=== PATIENT | male | born 1940 | race Caucasian/White ===

== ENCOUNTER 2023-04-24 19:05 | Inpatient (IN) | payer MEDICARE, SELFPAY ==
--- NOTE | ~2023-04-24 | CT_ITS ---
EXAMINATION: CT SOFT TISSUE NECK WITH CONTRAST CLINICAL INFORMATION: Swelling, redness COMPARISON: None. TECHNIQUE: Following the administration of 60 mL of Omnipaque 350 intravenous contrast, helical imaging was performed in the axial plane with generation of coronal and sagittal reformatted images. This CT examination was performed using dose optimization techniques as appropriate, variously including the following: *Automated exposure control. *Adjustment of mA and/or kV according to patient size (this includes techniques or standardized protocols for targeted exams where dose is matched to indication/reason for exam; i.e. extremities or head). *Use of iterative reconstruction technique. DLP: 4:15 mGy-cm. FINDINGS: There is inflammatory stranding within the subcutaneous fat of the submental region with thickening of the right greater than left platysma muscles and stranding extending caudally into the infrahyoid neck involving the subcutaneous fat and right submandibular and anterior neck triangles. Findings are most compatible with cellulitis. No definite odontogenic source identified, however there is a small root remnant of the right maxillary third molar within a significantly thinned right maxillary alveolus. No interval fluid collection. No evidence of sialoadenitis of the parotid or submandibular glands. Lens replacements. Slight leftward nasal septal deviation with small leftward bony spur. A single opacified right posterior ethmoid air cell with tiny retention cyst in the right maxillary sinus. Right mastoid effusion. Elongated an ossified styloid processes can be correlated clinically for [place] syndrome. The temporomandibular joints are normal. The oral cavity, pharyngeal mucosal space, and larynx are unremarkable, noting the laryngeal structures are closely apposed limiting assessment. The thyroid gland is normal. No pathologic size criteria or morphologically suspicious cervical chain lymph nodes. The partially visualized lung apices are clear. Normal opacification of the major neck vessels. Mild calcific plaque at the bilateral carotid bifurcations. Cervical spondylosis with multilevel mild chronic height loss of the lower cervical vertebral bodies. Partially imaged global cerebral volume loss. Calcific plaque along the bilateral carotid siphons. CT/CT soft tissue neck w IV con IMPRESSION: Cellulitis within the submental region tracking caudally into the right greater than left infrahyoid neck as above. No drainable fluid collection. Definite odontogenic source identified, however there is a small root remnant of the right maxillary third molar within a significantly thinned right maxillary alveolus
[2023-04-24 19:15] VITALS: BP 176/76; PULSE 64; RESP 18; TEMP 36.9; O2SAT 99; BMI 29.6
--- NOTE | 2023-04-24 19:21 | ED_ITS ---
HPI - General Adult General Chief complaint: General Medical Stated complaint: facial swelling and pain, started this morning Time Seen by Provider: 04/25/23 01:24 Source: patient and family Mode of arrival: ambulatory Limitations: no limitations History of Present Illness HPI narrative: 83 yo male with PMH of HTN, Fe deficiency anemia, GERD, chronic anemia - Fe infusions and procrit here with c/o having recent URI but then noting R sided facial swelling that fluctuates up and down starting today. He went to the dentist today and was told it was not dental. The swelling has improved throughout the day not related to eating or chewing. He has no fevers, no diff swallowing no change in voice. MD complaint: facial swelling Onset (ago): day(s) (started Sunday) Location: face Radiation: non-radiation Severity: moderate Relieving factors: none Exacerbating factors: none Associated symptoms: denies other symptoms Treatments prior to arrival: none Related Data Allergies Allergy/AdvReac Type Severity Reaction Status Date / Time lactose Allergy Diarrhea Verified 04/24/23 19:24 latex Allergy Hives Verified 04/24/23 19:24 aspirin AdvReac Stomach Verified 04/24/23 19:24 Upset NSAIDS (Non-Steroidal AdvReac Stomach Verified 04/24/23 19:24 Anti-Inflamma Upset Review of Systems 2 Review of Systems: Constitutional : No Fever, No Chills ENT/Mouth : No sore throat, No Rhinorrhea Eyes: No Eye Pain, No Swelling, No Redness, pos facial swelling Cardiovascular : No Chest Pain, No SOB Respiratory : No Cough, No Sputum Gastrointestinal : No Nausea, No Vomiting, No Diarrhea, No abdominal Pain Genitourinary : No Dysuria, No Hematuria Musculoskeletal : No joint pain, No Myalgias, No Joint Swelling Skin : No Skin Lesions, positive skin rash Neuro : No Weakness, No Numbness, No Headache Psych : No Anxiety, No Depression Heme/Lymph: No Bruising, No Bleeding,No Lymphadenopathy Endocrine : No Polyuria, No Polydipsia All other systems reviewed and are negative [facility] Past Medical History Attestation statement: The following information was validated with the patient. Medical History HTN (hypertension) Anemia GERD (gastroesophageal reflux disease) Social History Social History Alcohol intake: never Patient Tobacco Use Status: Never used Tobacco Smoked in Last 30 Days: No Use of substances other than those prescribed or required for medical reasons: No Advance Directives: No Advance Directives Information Provided: No Physical Exam ED Vital Signs: Vital Signs - 24 hr 04/24/23 19:15 04/25/23 01:28 04/25/23 03:14 Temperature 98.5 F 98.7 F 97.4 F Pulse Rate 64 76 68 Respiratory Rate 18 17 16 Blood Pressure 176/76 H 136/67 138/83 Pulse Oximetry 99 97 98 Oxygen Delivery Method Room Air Room Air Room Air BMI result Body Mass Index 29.6 Appearance: Alert. Oriented X3. No acute distress. Eyes: Pupils equal, round and reactive to light. ENT: Pharynx normal. no parotid ttp no dental abscess or swelling. The patient has swelling and erythema to preauricular area with some mild submandibular swelling there is erythema but no cord in the neck noted no stridor drooling or trismus, both TMs normal Neck: Normal inspection. Neck supple. CVS: Normal heart rate and rhythm. Pulses normal. Respiratory: No respiratory distress. Breath sounds normal. Abdomen: Soft and nontender. Skin: Skin warm and dry. Normal skin color. Normal skin turgor. Extremities: No lower extremity edema. No calf ttp Neuro: Oriented X 3. No motor deficit. No sensory deficit. Course Course Course Narrative: RME- 83 year old male presents for evaluation of right facial and neck swelling. He reports it swelled up significantly twice today and improved. He went to the dentist earlier and had x-rays and was told dental sources not a issue. He also went to urgent Care was told he had a swollen lymph node. Patient states that about 40 minutes the swelling was 3 times the normal size and then it began to improve again on his way here. Denies any recent medication changes. He still has [id number] edema of right facial and neck periauricular lymphadenopathy. The ear itself, tympanic membrane is pearly white without erythema or effusion. Plan for labs and further workup as indicated Medications Administered Discontinued Medications Generic Name Dose Route Start Last Admin Trade Name Freq PRN Reason Stop Dose Admin Piperacillin Sod/Tazobactam 50 mls @ 100 mls/hr 04/25/23 02:45 04/25/23 03:46 Sod 3.375 gm/ Sodium Chloride IV 04/25/23 03:14 100 mls/hr ONCE ONE Administration Iohexol 60 ml 04/25/23 02:05 04/25/23 02:10 Iohexol 350 Mg/Ml 100 Ml Infus..Btl IV 04/25/23 02:06 60 ml ONCE ONE Administration Medical Decision Making Medical Decision Making [facility] Narrative: 83 yo male with PMH of HTN, Fe deficiency anemia, GERD, chronic anemia - Fe infusions and procrit here with c/o R sided facial swelling no signs of respiratory involvement at this time labs, CT scan to evaluate swelling there is signs of external facial cellulitis no abscess or crepitus noted Differential Diagnosis Differential Diagnoses: The differential diagnosis associated with the presentation includes sialodenitis, cellulitis, lymphadenitis Admission/Observation Consideration of admission/observation: Escalation of care including admission/observation considered will admit for IV antibiotics I did try to ask the patient to attempt oral but he does not feel comfortable as he feels the swelling has worsened Consult Healthcare Provider Management of the patient was discussed with: Hospitalist (will admit) Lab Data [facility] Lab Attestation statement: I reviewed the patient's lab results. 04/25/23 05:00 04/24/23 19:56 Labs: Lab Results 04/24/23 Range/Units 19:56 WBC 7.4 (4.8-10.8) X10*3/uL RBC 2.75 L (4.60-5.80) X10*6/uL Hgb 8.8 L (14.0-18.0) g/dl Hct 27.3 L (42.0-52.0) % MCV 99.3 H (80.0-98.0) fL MCH 32.0 (27.0-33.0) pg MCHC 32.2 (31.0-36.0) g/dl RDW 20.2 H (11.0-16.0) % Plt Count 257 (160-400) X10*3/uL MPV 10.2 (9.4-12.4) fL Immature Gran % (Auto) 0.4 (0.0-0.4) % Neut % (Auto) 68.3 (45-73) % Lymph % (Auto) 19.9 L (20-40) % [place] % (Auto) 9.1 (2-11) % Eos % (Auto) 1.5 (0-4) % Baso % (Auto) 0.8 (0-2) % Lymph # (Auto) 1.5 (1.2-4.9) X10*3/uL [place] # (Auto) 0.7 (0.1-1.2) X10*3/uL Eos # (Auto) 0.1 (0.0-0.4) X10*3/uL Baso # (Auto) 0.1 (0.0-0.2) X10*3/uL Abs Immat Gran (auto) 0.03 (0.00-0.03) X10*3/uL Absolute Neuts (auto) 5.0 (2.0-8.3) x10*3/uL Absolute Nucleated RBC 0.020 H (0.0-0.012) X10*3/uL Nucleated RBC % (auto) 0.3 H (0.0-0.2) /100WBC ESR 7 (0-15) MM/HR Sodium 144 (135-145) mmol/L Potassium 4.0 (3.3-5.1) mmol/L Chloride 111 H (96-108) mmol/L Carbon Dioxide 23 (22-29) mmol/L Anion Gap 14 (12-20) BUN 19 H (9-16) mg/dL Creatinine 1.18 (0.5-1.4) mg/dL Estim Creat Clear Calc 53.7 Estimated GFR 59 Random Glucose 95 (60-115) mg/dL Calcium 9.0 (8.4-10.2) mg/dL C-Reactive Protein 0.10 (< or = 0.50) mg/dL COVID-19 (ANITA) Negative (Negative) COVID-19 Clin Com See Note Monoscreen Negative (Negative) Influenza Type A (KESHA) Negative (Negative) Influenza Type B (KESHA) Negative (Negative) Influenza A & B Note See Note S. pyogenes GrpA KESHA Negative (Negative) Independent Interpretation I performed an independent interpretation of an: CT Scan (no abscess) Radiology Impression Discussion of test interpretation with radiology: I have reviewed the radiologist's reading. Independent Historian Clinical information obtained from an independent historian. History obtained from or confirmed by: Spouse External Record Review External record reviewed: Outpatient record Discharge Plan Discharge Clinical Impression: Cellulitis of face Patient Disposition: Admitted As Inpatient
--- NOTE | 2023-04-24 19:58 | MHC.EDTECH ---
Patient brought into triage area,labs,covid,flu,and strep obtained and sent to lab.
[2023-04-24 20:04] LABS: MANUAL DIFF FLAG NO
[2023-04-24 20:12] LABS: IDNOW Serial# 08D9AD1C; Strep A Nucleic Acid Negative (Negative)
[2023-04-24 20:16] LABS: Basophils Absolute Auto 0.1 X10*3/uL (0.0-0.2); Basophils Percent Auto 0.8 % (0-2); Eosinophils Absolute Auto 0.1 X10*3/uL (0.0-0.4); Eosinophils Percent Auto 1.5 % (0-4); Hematocrit 27.3 % (42.0-52.0); Hemoglobin 8.8 g/dl (14.0-18.0); Imm Gran Abs Auto 0.03 X10*3/uL (0.00-0.03); Imm Gran Pct Auto 0.4 % (0.0-0.4); Lymphocytes Absolute Auto 1.5 X10*3/uL (1.2-4.9); Lymphocytes Percent Auto 19.9 % (20-40); Mean Corpuscular HGB Conc 32.2 g/dl (31.0-36.0); Mean Corpuscular Volume 99.3 fL (80.0-98.0); Mean Platelet Volume 10.2 fL (9.4-12.4); Monocytes Absolute Auto 0.7 X10*3/uL (0.1-1.2); Monocytes Percent Auto 9.1 % (2-11); NRBC Pct Auto 0.3 /100WBC (0.0-0.2); Neutrophils Percent Auto 68.3 % (45-73); Platelet Count 257 X10*3/uL (160-400); Red Blood Count 2.75 X10*6/uL (4.60-5.80); Red Cell Distribution Width 20.2 % (11.0-16.0); White Blood Count 7.4 X10*3/uL (4.8-10.8)
[2023-04-24 20:17] LABS: Anion Gap 14 (12-20); Blood Urea Nitrogen 19 mg/dL (9-16); Carbon Dioxide 23 mmol/L (22-29); Chloride 111 mmol/L (96-108); Creatinine Clr Calc Pharmacy 53.7; Estimated Glomerular Filt Rate 59; Glucose Random 95 mg/dL (60-115); Sodium 144 mmol/L (135-145)
[2023-04-24 20:18] LABS: Monotest Negative (Negative)
[2023-04-24 20:22] LABS: COVID-19 Test Negative (Negative); IDNOW Serial# 58CA691E; IDNOW Serial# 9DB6401D; Influenza A Negative (Negative); Influenza B2 Negative (Negative)
[2023-04-24 21:05] LABS: Erythrocyte Sedimentation Rate 7 MM/HR (0-15)
[2023-04-25 01:28] VITALS: BP 136/67; PULSE 76; RESP 17; TEMP 37.1; O2SAT 97
[2023-04-25] MEDS: iohexoL 350 MG/ML 100 ML INFUS..BTL 60 ML IV (02:10)
[2023-04-25 03:14] VITALS: BP 138/83; PULSE 68; RESP 16; TEMP 36.3; O2SAT 98
[2023-04-25] MEDS: Piperacillin Sodium/Tazobactam 3.375 GM in 0.9 % Sodium Chloride 50 ML IV (03:46)
--- NOTE | 2023-04-25 03:47 | P.HPHOSP_ITS ---
History of Present Illness Date of Service: 04/25/23 Chief Complaint: Facial swelling This is a 83-year-old male with pertinent history of essential hypertension, gastroesophageal reflux disease, anemia of chronic disease, gout, mood disorder who presents to the emergency department for evaluation of facial swelling. Patient states he woke up on the day of presentation and noticed right-sided facial swelling. It was warm, tender and involve the right side of the face from below the ER to the whole cheek. Patient called his dentist and visited his dentist for evaluation of the same. The dentist told him that it was not coming from the teeth and there was no concern for dental abscess. No difficulty in breathing, no change in voice. The swelling continued throughout the day. Had recent symptoms of upper respiratory tract infection. No history of similar symptoms prior to this. No fever, chills, chest discomfort, palpitations, shortness of breath, abdominal pain, changes in urinary or bowel habits. In the emergency department, imaging with cellulitis within the submental region Review of Systems 2 Constitutional: Constitutional: Reports no additional constitutional complaints Cardiovascular: Cardiovascular: Reports no additional cardiovascular complaints Respiratory: Respiratory: Reports no additional respiratory complaints Gastrointestinal: Gastrointestinal: Reports no additional gastrointestinal complaints Genitourinary: Genitourinary: Reports no additional male genitourinary complaints ON LICENSE OF [facility] Medical History HTN (hypertension) Anemia GERD (gastroesophageal reflux disease) Pertinent family history: Not significant due to age Social History Alcohol intake: never Patient Tobacco Use Status: Never used Tobacco Smoked in Last 30 Days: No Use of substances other than those prescribed or required for medical reasons: No Advance Directives: No Advance Directives Information Provided: No Meds Allergies Allergy/AdvReac Type Severity Reaction Status Date / Time lactose Allergy Diarrhea Verified 04/24/23 19:24 latex Allergy Hives Verified 04/24/23 19:24 aspirin AdvReac Stomach Verified 04/24/23 19:24 Upset NSAIDS (Non-Steroidal AdvReac Stomach Verified 04/24/23 19:24 Anti-Inflamma Upset Physical Exam 2 Vital Signs and Narrative: Vital Signs: Last Vital Signs Temp 97.4 F 04/25/23 03:14 Pulse 68 04/25/23 03:14 Resp 16 04/25/23 03:14 BP 138/83 04/25/23 03:14 Pulse Ox 98 04/25/23 03:14 O2 Del Method Room Air 04/25/23 03:14 BMI result Body Mass Index 29.6 Elderly male lying in bed in no distress Neck supple, no JVD Regular rate and rhythm, S1-S2 heard Regular breath sounds bilaterally, no wheezing or crackles appreciated Abdomen soft nontender, no guarding, no rigidity Patient is awake, alert and oriented to self, place, time and person ; no focal motor deficit Skin: Swelling and erythema over the right side of the face Psych: Normal mood No pedal edema Results Labs 04/24/23 19:56 04/24/23 19:56 Labs: Laboratory Results - last 24 hr 04/24/23 19:56 MCV 99.3 H MCH 32.0 MCHC 32.2 RDW 20.2 H Plt Count 257 MPV 10.2 Immature Gran % (Auto) 0.4 Neut % (Auto) 68.3 Lymph % (Auto) 19.9 L [place] % (Auto) 9.1 Eos % (Auto) 1.5 Baso % (Auto) 0.8 Lymph # (Auto) 1.5 [place] # (Auto) 0.7 Eos # (Auto) 0.1 Baso # (Auto) 0.1 Abs Immat Gran (auto) 0.03 Absolute Neuts (auto) 5.0 Absolute Nucleated RBC 0.020 H Nucleated RBC % (auto) 0.3 H ESR 7 Anion Gap 14 Estim Creat Clear Calc 53.7 Estimated GFR 59 Random Glucose 95 Calcium 9.0 C-Reactive Protein 0.10 COVID-19 (ANITA) Negative COVID-19 Clin Com See Note Monoscreen Negative Influenza Type A (KESHA) Negative Influenza Type B (KESHA) Negative Influenza A & B Note See Note S. pyogenes GrpA KESHA Negative Imaging Radiologist's Impressions: Impressions Soft Tissue Neck CT 04/25/23 02:12 IMPRESSION: Cellulitis within the submental region tracking caudally into the right greater than left infrahyoid neck as above. No drainable fluid collection. Definite odontogenic source identified, however there is a small root remnant of the right maxillary third molar within a significantly thinned right maxillary alveolus Assessment and Plan (1) Cellulitis of face: Status: Acute Plan This is a 83-year-old male with pertinent history of essential hypertension, gastroesophageal reflux disease, anemia of chronic disease, gout, mood disorder who presents to the emergency department for evaluation of facial swelling. #. Acute nonpurulent cellulitis of the face: Will admit patient and initiate empiric IV antibiotics due to extensive cellulitis. No sepsis. Monitor for improvement. #. Essential hypertension: On beta-garland and spironolactone #. Gastroesophageal reflux disease: On PPI #. Anemia of chronic disease: Patient states he receives a Procrit injections every week. His baseline hemoglobin is around 9.5. #. Gout: On allopurinol Med rec pending DVT prophylaxis: Mechanical Full code Admit as inpatient and will require two night minimum hospital stay for IV antibiotics (as above), which is not possible in a lesser acute setting. Quality Stroke Does the patient have a stroke diagnosis?: No VTE Prior VTE?: No VTE Risk Level:: Medical - moderate - high VTE Device Contraindication: N/A - Device Ordered VTE Drug Contraindication: Treatment Not Indicated
[2023-04-25 05:34] LABS: MANUAL DIFF FLAG NO
[2023-04-25 05:36] LABS: Basophils Absolute Auto 0.1 X10*3/uL (0.0-0.2); Eosinophils Absolute Auto 0.2 X10*3/uL (0.0-0.4); Eosinophils Percent Auto 2.6 % (0-4); Hematocrit 26.5 % (42.0-52.0); Hemoglobin 8.4 g/dl (14.0-18.0); Imm Gran Abs Auto 0.02 X10*3/uL (0.00-0.03); Imm Gran Pct Auto 0.3 % (0.0-0.4); Lymphocytes Absolute Auto 1.5 X10*3/uL (1.2-4.9); Lymphocytes Percent Auto 23.5 % (20-40); Mean Corpuscular HGB Conc 31.7 g/dl (31.0-36.0); Mean Corpuscular Hemoglobin 31.7 pg (27.0-33.0); Mean Platelet Volume 10.4 fL (9.4-12.4); Monocytes Absolute Auto 0.6 X10*3/uL (0.1-1.2); Monocytes Percent Auto 8.8 % (2-11); NRBC Pct Auto 0.3 /100WBC (0.0-0.2); Neutrophils Percent Auto 63.8 % (45-73); Platelet Count 237 X10*3/uL (160-400); Red Blood Count 2.65 X10*6/uL (4.60-5.80); Red Cell Distribution Width 20.1 % (11.0-16.0); White Blood Count 6.2 X10*3/uL (4.8-10.8)
[2023-04-25 05:49] LABS: Anion Gap 13 (12-20); Blood Urea Nitrogen 19 mg/dL (9-16); Calcium 8.5 mg/dL (8.4-10.2); Carbon Dioxide 24 mmol/L (22-29); Chloride 108 mmol/L (96-108); Creatinine Clr Calc Pharmacy 56.1; Estimated Glomerular Filt Rate > 60; Glucose Random 86 mg/dL (60-115); Potassium 3.7 mmol/L (3.3-5.1); Sodium 141 mmol/L (135-145)
[2023-04-25] MEDS: 0.9 % Sodium Chloride Flush 3 ML SYRINGE IVFLUSH ×3 (08:33→20:24)
[2023-04-25] MEDS: Enoxaparin Sodium 40 MG/0.4 ML SYRINGE SUBCUT (08:33)
--- NOTE | 2023-04-25 08:33 | PHA.MEDREC ---
Addendum entered by Keily Ann [facility] 04/25/23 14:37: Confirmed with nurse at [facility] that he gets 8000 units of Retacrit every Sunday. Original Note: Pharmacy Consult ? Medication Reconciliation Pharmacy has completed the medication reconciliation. Spoke to patient at bedside. Patient states he gets a Retacrit injection every Sunday but is unsure of the dose. Called [facility] ([phone]) and left message to verify dose. Dr. Zepeda at bedside aware.
--- NOTE | 2023-04-25 09:55 | P.PNIM_ITS ---
Subjective Subjective Date of Service: 04/25/23 Interval History: imprvoing Physical Exam 2 Vital Signs: Vital Signs: Last Vital Signs Temp 97.4 F 04/25/23 03:14 Pulse 68 04/25/23 03:14 Resp 16 04/25/23 03:14 BP 138/83 04/25/23 03:14 Pulse Ox 98 04/25/23 03:14 O2 Del Method Room Air 04/25/23 03:14 BMI result Body Mass Index 29.6 right facial swelling, erythema Objective Data Active Medications Acetaminophen (Acetaminophen 325 Mg Tablet) 650 mg PO Q6H PRN PRN Reason: Pain, Mild (Pain Scale 1-3) Allopurinol (Allopurinol 100 Mg Tablet) 100 mg PO DAILY [facility] Enoxaparin Sodium (Enoxaparin Sodium 40 Mg/0.4 Ml Syringe) 40 mg SUBCUT Q24H [facility] Last Admin: 04/25/23 08:33 Dose: 40 mg Documented By: JACQUE Ampicillin Sodium/Sulbactam (Sodium 3 gm/ Sodium Chloride) 100 mls @ 200 mls/hr IV Q6H [facility] Loperamide HCl (Loperamide Hcl 2 Mg Capsule) 2 mg PO QID PRN PRN Reason: Diarrhea Melatonin (Melatonin 3 Mg Tablet) 6 mg PO BEDTIME PRN PRN Reason: Insomnia Metoprolol Succinate (Metoprolol Succinate Er 25 Mg Tab.Er.24h) 25 mg PO DAILY [facility]; Protocol Non-Formulary Medication (Ferrous Sulfate [Ferosul]) 325 mg PO DAILY [facility] Non-Formulary Medication (Pantoprazole) 40 mg PO BID@0630,1630 [facility] Ondansetron HCl (Ondansetron Hcl 4 Mg/2 Ml Vial) 4 mg IVPUSH Q8H PRN PRN Reason: Nausea and Vomiting Sodium Chloride (0.9 % Sodium Chloride Flush 3 Ml Syringe) 3 ml IVFLUSH QSHIFT [facility] Last Admin: 04/25/23 08:33 Dose: 3 ml Documented By: JACQUE Labs 04/25/23 05:00 04/25/23 05:00 Labs: Laboratory Results - last 24 hr 04/24/23 04/25/23 19:56 05:00 MCV 99.3 H 100.0 H MCH 32.0 31.7 MCHC 32.2 31.7 RDW 20.2 H 20.1 H Plt Count 257 237 MPV 10.2 10.4 Immature Gran % (Auto) 0.4 0.3 Neut % (Auto) 68.3 63.8 Lymph % (Auto) 19.9 L 23.5 [place] % (Auto) 9.1 8.8 Eos % (Auto) 1.5 2.6 Baso % (Auto) 0.8 1.0 Lymph # (Auto) 1.5 1.5 [place] # (Auto) 0.7 0.6 Eos # (Auto) 0.1 0.2 Baso # (Auto) 0.1 0.1 Abs Immat Gran (auto) 0.03 0.02 Absolute Neuts (auto) 5.0 4.0 Absolute Nucleated RBC 0.020 H 0.020 H Nucleated RBC % (auto) 0.3 H 0.3 H ESR 7 Anion Gap 14 13 Estim Creat Clear Calc 53.7 56.1 Estimated GFR 59 > 60 Random Glucose 95 86 Calcium 9.0 8.5 C-Reactive Protein 0.10 COVID-19 (ANITA) Negative COVID-19 Clin Com See Note Monoscreen Negative Influenza Type A (KESHA) Negative Influenza Type B (KESHA) Negative Influenza A & B Note See Note S. pyogenes GrpA KESHA Negative Assessment and Plan (1) Cellulitis of face: Status: Acute Plan 83M PMH htn, gerd, anemia, gout, mood disorder presented with right facial swelling and ertyhema Acute right facial cellulitis Continue IV Unasyn Follow-up cultures Hypertension Continue Toprol, Aldactone GERD PPI Chronic anemia unspecified Check B12 and folate, outpatient follow-up DVT prophylaxis-mechanical due to anemia Full code reason for continued hospitalization:ongoing iv antibitics for high risk cellulitis (due to sensitivity of site) Quality Stroke Does the patient have a stroke diagnosis?: No VTE Prior VTE?: No VTE Risk Level:: Medical - moderate - high VTE Device Contraindication: N/A - Device Ordered VTE Drug Contraindication: Treatment Not Indicated
[2023-04-25] MEDS: Ampicillin Sodium/Sulbactam Na 3 GM in 0.9 % Sodium Chloride 100 ML IV ×3 (10:12→20:15)
[2023-04-25] MEDS: Spironolactone 25 MG TABLET PO (10:13)
[2023-04-25] MEDS: Metoprolol Succinate ER 25 MG TAB.ER.24H PO (10:13)
[2023-04-25] MEDS: allopurinoL 100 MG TABLET PO (10:13)
[2023-04-25 11:03] VITALS: BP 137/66; PULSE 68; RESP 16; O2SAT 99
--- NOTE | 2023-04-25 11:18 | MHC.CM.PN ---
IMM 04/25/23, Pt lives with his , he was active with a VNA, a nurse would come once a week to take his BP and talk to him. He cannot recall the name of the VNA. He has a HCP, naming his , copy was requested. He has medical equipment of a BP monitor, cane, and said that he may benefit from having a walker because he gets dizzy at times. His will transport him home upon DC. CM to follow and assist with DC plan.
[2023-04-25 12:24] VITALS: BP 168/74; PULSE 73; RESP 18; TEMP 36.4; O2SAT 99
[2023-04-25 15:18] LABS: Folate 10.4 ng/mL (> or = 4.0); Vitamin B12 444 pg/mL (200-900)
[2023-04-25] MEDS: Omeprazole 20 MG CAPSULE.DR PO (15:47)
[2023-04-25 16:00] VITALS: BP 131/69; PULSE 68; RESP 16; TEMP 36.6; O2SAT 98
[2023-04-25 19:45] VITALS: BP 132/56; PULSE 62; RESP 18; TEMP 36.2; O2SAT 93
[2023-04-26 03:28] VITALS: BP 146/70; PULSE 80; RESP 18; TEMP 36.7; O2SAT 96
[2023-04-26] MEDS: Ampicillin Sodium/Sulbactam Na 3 GM in 0.9 % Sodium Chloride 100 ML IV (03:28)
[2023-04-26] MEDS: Omeprazole 20 MG CAPSULE.DR PO (06:22)
[2023-04-26 07:05] VITALS: BP 136/63; PULSE 66; RESP 18; TEMP 36.8; O2SAT 99
--- NOTE | 2023-04-26 08:38 | P.DS_ITS ---
DS: Providers Provider Date of Service: 04/26/23 Date of admission: 04/25/23 03:45 Primary care physician: Rc Armenta MD DS: Diagnosis Discharge Diagnosis (1) Cellulitis of face: Status: Acute DS: Summary Hospital Course Hospital Course: from initial hpi: 83-year-old male with pertinent history of essential hypertension, gastroesophageal reflux disease, anemia of chronic disease, gout, mood disorder who presents to the emergency department for evaluation of facial swelling. Patient states he woke up on the day of presentation and noticed right-sided facial swelling. It was warm, tender and involve the right side of the face from below the ER to the whole cheek. Patient called his dentist and visited his dentist for evaluation of the same. The dentist told him that it was not coming from the teeth and there was no concern for dental abscess. No d ifficulty in breathing, no change in voice. The swelling continued throughout the day. Had recent symptoms of upper respiratory tract infection. No history of similar symptoms prior to this. No fever, chills, chest discomfort, palpitations, shortness of breath, abdominal pain, changes in urinary or bowel habits. In the emergency department, imaging with cellulitis within the submental region hospital course: Patient was admitted for acute right facial cellulitis. Was treated with IV Unasyn and symptoms significantly improved. Cultures were negative. No evidence of sepsis. Patient will be discharged on 7 more days of p.o. Augmentin. For hypertension was continued on Toprol and Aldactone. For GERD was continued on PPI. For chronic unspecified anemia was given his weekly dose of Procrit, will continue to follow up outpatient. Time Attestation Discharge coordination time: Greater than 30 minutes Quality: Safe Use of Opioids Does Pt have an Active Cancer Diagnosis on the Problem List?: No Quality: Stroke Does the patient have a stroke diagnosis?: No Physical Exam Vital Signs: Vital Signs: Last Vital Signs Temp 98.3 F 04/26/23 07:05 Pulse 66 04/26/23 07:05 Resp 18 04/26/23 07:05 BP 136/63 04/26/23 07:05 Pulse Ox 99 04/26/23 07:05 O2 Del Method Room Air 04/26/23 07:05 BMI result Body Mass Index 29.6 improved right facial swelling, erythema resolved DS: Data Data Completed and Pending Labs on day of discharge: Laboratory Results - last 24 hr 04/25/23 13:02 Vitamin B12 444 Folate 10.4 Discharge Plan Discharge Anticipated Discharge Date/Time: 04/26/23 08:36 Patient Disposition: Home, Self-Care Discharge Diagnosis: cellulitis Referrals: Rc Armenta MD [Primary Care Provider] - 1 Week Discharge Medications: New amoxicillin-pot clavulanate 875-125 mg tablet 1 tab PO BID Qty: 14 0RF Continued loperamide 2 mg Capsule 2 mg PO QID PRN (Reason: Diarrhea) trazodone 50 mg tablet 50 mg PO BEDTIME PRN (Reason: Sleep) metoprolol succinate 50 mg tablet extended release 24 hr 25 mg PO DAILY allopurinol 100 mg tablet 100 mg PO DAILY tramadol 50 mg tablet 50 mg PO Q6H PRN (Reason: pain) spironolactone 25 mg tablet 25 mg PO DAILY pantoprazole 40 mg tablet,delayed release (DR/EC) 40 mg PO BID@0630,1630 ferrous sulfate [FeroSul] 325 mg (65 mg iron) tablet 325 mg PO DAILY Retacrit 20,000 unit/2 mL Solution 8,000 unit SUBCUT WE Discharge Orders: Discharge Order (Routine); Ordered 04/26/23 Ordered By: Shaquille Zepeda Diet: Advance to usual diet Activity on Discharge: As tolerated Stand Alone Forms: Patient Portal Discharge page Care Plan Goals: recovery Health Concerns: facial cellulitis Plan of Treatment: augmentin 7 more days Assessment: see above
[2023-04-26] MEDS: Metoprolol Succinate ER 25 MG TAB.ER.24H PO (09:04)
[2023-04-26] MEDS: 0.9 % Sodium Chloride Flush 3 ML SYRINGE IVFLUSH (09:04)
[2023-04-26] MEDS: Spironolactone 25 MG TABLET PO (09:04)
[2023-04-26] MEDS: Ferrous Sulfate 324 MG TABLET.DR PO (09:04)
[2023-04-26] MEDS: allopurinoL 100 MG TABLET PO (09:04)
--- NOTE | 2023-04-26 09:18 | MHC.CM.PN ---
Patient is medically cleared for dc home. Will resume [facility] services with [facility]. [facility] made aware of dc, summary faxed to [phone]. Patient's will transport home.
--- NOTE | 2023-04-26 14:19 | W.MHC.F2F ---
Service Date Service Date: 04/26/23 Encounter Date of encounter: 04/26/23 Reasons for Services Signs and symptoms assessed: right facial celluliits Reason for retirement: medication management, medication treatment and teach disease management Homebound: Leaving the home is medically contraindicated at this time without the asist of a device and/or another person due th the listed conditions above and below. Reason homebound: unsteady gait / fall risk Certification: Based on the above findings, I certify that this patient is confined to the home and needs intermittent retirement care, physical therapy and/or speech therapy, or continues to need occupational therapy. The patient is under my care, and I have initiated the establishment of the plan of care. The patient will be followed by a physician who will periodically review the plan of care. Time Spent With Patient Time: Total time managing care of this patient today ____ minutes.
== END 2023-04-26 09:57 | disposition home or self-care (01) | DRG 603 ==
LOC: HO.ED 04-25 03:17 → HO.EDOVER 04-25 03:51 → HO.S3 04-25 11:38
PROVIDERS: Physician Assistant; Admitting Provider Student in an Organized Health Care Education/Training Program; Emergency Provider Emergency Medicine; PCP Internal Medicine; Visit Provider Internal Medicine
DX: L03.211 Cellulitis of face (principal); D63.8 Anemia in other chronic diseases classified elsewhere; I10 Essential (primary) hypertension; K21.9 Gastro-esophageal reflux disease without esophagitis; M10.9 Gout, unspecified; Z20.822 Contact with and (suspected) exposure to COVID-19; Z91.040 Latex allergy status; Z79.899 Other long term (current) drug therapy
CPT/HCPCS: 36415; 70491; 80048; 82607; 82746; 85025; 85652; 86140; 86308; 87502; 87635; 87651; 99221; 99285; J0295; J0885; J1650; J2543; Q9967

== ENCOUNTER → 2023-04-25 03:45 | Outpatient (BNV) | payer MEDICARE, SELFPAY | PROVIDERS: Admitting Provider Student in an Organized Health Care Education/Training Program; Emergency Provider Emergency Medicine; PCP Internal Medicine; Visit Provider Student in an Organized Health Care Education/Training Program | DX: L03.211 Cellulitis of face (principal) | CPT/HCPCS: 99222; 99239; 99499; G0180 ==